=== PATIENT | male | born 1960 | race Caucasian/White ===

== ENCOUNTER 2018-12-26 14:25 | Emergency (ER) | payer MEDICARE ==
[~2018-12-26] VITALS: Ht 170.2 cm; Wt 81.2 kg
[2018-12-26] MEDS ORDERED: MUPI22OI30 TOP (15:11)
[2018-12-26] MEDS ORDERED: SULF1TAB49 PO (15:11)
[2018-12-26 15:35] VITALS: BP 151/96
== END 2018-12-26 15:36 | disposition home or self-care (01) ==
LOC: ER 14:26
DX: L98.8 Other specified disorders of the skin and subcutaneous tissue (principal); G89.29 Other chronic pain; F12.90 Cannabis use, unspecified, uncomplicated; F15.90 Other stimulant use, unspecified, uncomplicated; Z88.0 Allergy status to penicillin
CPT/HCPCS: 99283

== ENCOUNTER 2019-02-28 15:49 | Emergency (ER) | payer MEDICARE ==
[~2019-02-28] VITALS: Ht 167.6 cm; Wt 83.8 kg
[2019-02-28 16:07] VITALS: BP 169/111
[2019-02-28] MEDS ORDERED: MUPI22OI30 TOP (17:22)
[2019-02-28] MEDS ORDERED: SULF1TAB49 PO (17:22)
== END 2019-02-28 17:38 | disposition home or self-care (01) ==
LOC: ER 15:50
DX: R21 Rash and other nonspecific skin eruption (principal); G89.29 Other chronic pain; F12.90 Cannabis use, unspecified, uncomplicated; F15.90 Other stimulant use, unspecified, uncomplicated; Z79.2 Long term (current) use of antibiotics; Z88.0 Allergy status to penicillin
CPT/HCPCS: 99283

== ENCOUNTER 2021-06-29 09:53 | Emergency (ER) | payer MEDICARE ==
[~2021-06-29] VITALS: Ht 170.2 cm; Wt 79.5 kg
[2021-06-29 09:57] VITALS: BP 216/122
[2021-06-29 10:32] LABS: BASOPHILS # (AUTO) 0.1 X10'3 (0-0.2); BASOPHILS % (AUTO) 0.9 % (0-1); EOSINOPHILS # (AUTO) 0.1 X10'3 (0-0.9); EOSINOPHILS % (AUTO) 0.8 % (0-6); HEMATOCRIT 42.5 % (42.0-52.0); HEMOGLOBIN 14.6 g/dl (14.0-17.9); LYMPHOCYTES # (AUTO) 1.4 X10'3 (1.1-4.8); LYMPHOCYTES % (AUTO) 21.5 % (21-51); MEAN CORPUSCULAR HEMOGLOBIN 31.7 PG (27.0-31.0); MEAN CORPUSCULAR HGB CONC 34.3 g/dL (33.0-36.5); MEAN CORPUSCULAR VOLUME 92.4 FL (78-98); MEAN PLATELET VOLUME 7.5 FL (7.4-10.4); MONOCYTES # (AUTO) 0.4 X10'3 (0-0.9); MONOCYTES % (AUTO) 6.4 % (2-12); NEUTROPHILS # (AUTO) 4.5 X10'3 (1.8-7.7); NEUTROPHILS % (AUTO) 70.4 % (42-75); PLATELET COUNT 252 X10'3 (140-440); RED CELL DISTRIBUTION WIDTH 14.6 % (11.5-14.5); WHITE BLOOD COUNT 6.4 X10'3 (4.5-11.0)
[2021-06-29 10:41] LABS: ALANINE AMINOTRANSFERASE 27 U/L (12-78); ALBUMIN 3.6 G/DL (3.4-5.0); ALBUMIN/GLOBULIN RATIO 0.9 (1.1-1.5); ALKALINE PHOSPHATASE 69 IU/L (46-116); ANION GAP 7 (8-16); ASPARTATE AMINO TRANSFERASE 20 U/L (10-37); BILIRUBIN,TOTAL 0.4 MG/DL (0.1-1.0); BLOOD UREA NITROGEN 21 MG/DL (7-18); BUN/CREATININE RATIO 28.4 (5.4-32.0); CALCIUM 8.7 MG/DL (8.5-10.1); CHLORIDE 104 MMOL/L (99-107); CREATININE 0.74 MG/DL (0.60-1.10); GLUCOSE 96 MG/DL (70-104); POTASSIUM 4.5 MMOL/L (3.5-5.1); SODIUM 141 MMOL/L (135-145); TOTAL CARBON DIOXIDE 29.7 MMOL/L (24-32); TOTAL PROTEIN 7.6 G/DL (6.4-8.2); eGFR > 90 ML/MIN
[2021-06-29] MEDS ORDERED: tranexamic acid 100mg/ml inj. TP ONE (12:30)
[2021-06-29] MEDS ORDERED: oxymetazoline 15 ML nasal spray NS ONE (12:30)
[2021-06-29] MEDS ORDERED: LIDOcaine Viscous 15ml cup MM ONE (14:00)
[2021-06-29] MEDS ORDERED: SULF1TAB49 PO (14:22)
== END 2021-06-29 14:39 | disposition home or self-care (01) ==
LOC: ER 09:53
DX: R04.0 Epistaxis (principal); G89.29 Other chronic pain; F12.90 Cannabis use, unspecified, uncomplicated; F15.90 Other stimulant use, unspecified, uncomplicated; Z88.0 Allergy status to penicillin; Z79.2 Long term (current) use of antibiotics
CPT/HCPCS: 30901; 30906; 36415; 80053; 85025; 85610; 86885; 86900; 86901; 99283; 99284

== ENCOUNTER 2023-08-30 06:19 | Emergency (ER) | payer MEDICARE ==
[~2023-08-30] VITALS: Ht 170.2 cm; Wt 82.7 kg
[2023-08-30 06:25] VITALS: TEMP 98.6
[2023-08-30 08:45] VITALS: BP 171/107; PULSE 79; RESP 16; O2SAT 99
[2023-08-30 09:47] LABS: BASOPHILS # (AUTO) 0.1 X10'3 (0-0.2); BASOPHILS % (AUTO) 0.9 % (0-1); EOSINOPHILS # (AUTO) 0.1 X10'3 (0-0.9); HEMATOCRIT 44.3 % (42.0-52.0); HEMOGLOBIN 14.6 g/dl (14.0-17.9); LYMPHOCYTES # (AUTO) 1.1 X10'3 (1.1-4.8); MEAN CORPUSCULAR HEMOGLOBIN 30.6 PG (27.0-31.0); MEAN CORPUSCULAR HGB CONC 33.1 g/dL (33.0-36.5); MEAN CORPUSCULAR VOLUME 92.6 FL (78-98); MEAN PLATELET VOLUME 7.5 FL (7.4-10.4); MONOCYTES # (AUTO) 0.7 X10'3 (0-0.9); MONOCYTES % (AUTO) 10.4 % (2-12); NEUTROPHILS # (AUTO) 5.1 X10'3 (1.8-7.7); NEUTROPHILS % (AUTO) 71.7 % (42-75); PLATELET COUNT 224 X10'3 (140-440); RED BLOOD COUNT 4.78 X10'6 (4.70-6.10); RED CELL DISTRIBUTION WIDTH 14.8 % (11.5-14.5); WHITE BLOOD COUNT 7.1 X10'3 (4.5-11.0)
[2023-08-30 10:01] LABS: ALBUMIN 3.5 G/DL (3.4-5.0); ANION GAP 7 (8-16); BLOOD UREA NITROGEN 14 MG/DL (7-18); BUN/CREATININE RATIO 16.5 (10.0-20.0); CALCIUM 8.8 MG/DL (8.5-10.1); CHLORIDE 103 MMOL/L (99-107); CREATININE 0.85 MG/DL (0.60-1.10); GLUCOSE 106 MG/DL (70-104); POTASSIUM 4.2 MMOL/L (3.5-5.1); SODIUM 137 MMOL/L (135-145); TOTAL CARBON DIOXIDE 27.4 MMOL/L (24-32); eCRCL 85 ML/MIN; eGFR > 90 ML/MIN
== END 2023-08-30 18:23 | disposition left against medical advice (07) ==
LOC: ER 06:20
DX: L08.89 Other specified local infections of the skin and subcutaneous tissue (principal); G89.29 Other chronic pain; F12.90 Cannabis use, unspecified, uncomplicated; F15.90 Other stimulant use, unspecified, uncomplicated
CPT/HCPCS: 36415; 80048; 85025; 85651; 86140; 99281; 99283

== ENCOUNTER 2023-08-30 18:06 | Emergency (ER) | payer MEDICARE ==
[~2023-08-30] VITALS: Ht 170.2 cm; Wt 83.0 kg
[2023-08-30 18:48] VITALS: BP 141/91; PULSE 83; RESP 16; TEMP 97.8; O2SAT 99
== END 2023-08-30 21:12 | disposition left against medical advice (07) ==
LOC: ER 18:07
DX: R22.43 Localized swelling, mass and lump, lower limb, bilateral (principal); G89.29 Other chronic pain; F12.90 Cannabis use, unspecified, uncomplicated; F15.90 Other stimulant use, unspecified, uncomplicated; Z72.89 Other problems related to lifestyle; Z88.0 Allergy status to penicillin
CPT/HCPCS: 36415; 83880; 99283

== ENCOUNTER 2024-11-09 07:23 | Emergency (ER) | payer MEDICARE ==
[~2024-11-09] VITALS: Ht 170.2 cm; Wt 80.8 kg
[2024-11-09] MEDS ORDERED: NO HOME MEDS (07:39)
[2024-11-09 08:14] LABS: BASOPHILS # (AUTO) 0.1 X10'3 (0-0.2); BASOPHILS % (AUTO) 1.2 % (0-1); EOSINOPHILS # (AUTO) 0.1 X10'3 (0-0.9); EOSINOPHILS % (AUTO) 1.4 % (0-6); HEMATOCRIT 49.9 % (42.0-52.0); HEMOGLOBIN 16.7 g/dl (14.0-17.9); LYMPHOCYTES # (AUTO) 1.3 X10'3 (1.1-4.8); LYMPHOCYTES % (AUTO) 17.1 % (21-51); MEAN CORPUSCULAR HEMOGLOBIN 31.3 PG (27.0-31.0); MEAN CORPUSCULAR HGB CONC 33.5 g/dL (33.0-36.5); MEAN CORPUSCULAR VOLUME 93.4 FL (78-98); MEAN PLATELET VOLUME 7.8 FL (7.4-10.4); MONOCYTES # (AUTO) 0.6 X10'3 (0-0.9); MONOCYTES % (AUTO) 8.1 % (2-12); NEUTROPHILS # (AUTO) 5.6 X10'3 (1.8-7.7); NEUTROPHILS % (AUTO) 72.2 % (42-75); PLATELET COUNT 277 X10'3 (140-440); RED BLOOD COUNT 5.35 X10'6 (4.70-6.10); RED CELL DISTRIBUTION WIDTH 14.1 % (11.5-14.5); WHITE BLOOD COUNT 7.7 X10'3 (4.5-11.0)
[2024-11-09 08:28] LABS: ALANINE AMINOTRANSFERASE 24 U/L (12-78); ALBUMIN 3.8 G/DL (3.4-5.0); ALBUMIN/GLOBULIN RATIO 0.8 (1.1-1.5); ALKALINE PHOSPHATASE 104 IU/L (46-116); ANION GAP 6 (8-16); ASPARTATE AMINO TRANSFERASE 24 U/L (10-37); BILIRUBIN,TOTAL 0.3 MG/DL (0.1-1.0); BLOOD UREA NITROGEN 13 MG/DL (7-18); BUN/CREATININE RATIO 16.7 (10.0-20.0); CALCIUM 8.8 MG/DL (8.5-10.1); CHLORIDE 101 MMOL/L (99-107); CREATININE 0.78 MG/DL (0.60-1.10); GLUCOSE 111 MG/DL (70-104); POTASSIUM 3.8 MMOL/L (3.5-5.1); SODIUM 136 MMOL/L (135-145); TOTAL CARBON DIOXIDE 28.8 MMOL/L (24-32); TOTAL PROTEIN 8.3 G/DL (6.4-8.2); eCRCL 92 ML/MIN; eGFR > 90 ML/MIN
[2024-11-09 08:36] LABS: PRO BRAIN NATRIURETIC PEPTIDE 210 PG/ML (0-125)
[2024-11-09] MEDS ORDERED: iohexol 350MG/ML 100ml bottle IV ONE (09:03)
[2024-11-09] MEDS ORDERED: iohexol 350 MG/ML 50ML vial IV ONE (09:03)
[2024-11-09] MEDS: ringers solution, lacted 1,000 ML IV ONE (09:04)
[2024-11-09] MEDS: aspirin 325mg tablet PO ONE (10:36)
[2024-11-09] MEDS: labetalol 20mg/4ml (5mg/ml) syringe IV ONE (10:36)
[2024-11-09] MEDS: HYDROchlorothiazide 25mg tablet PO SCH (12:45)
[2024-11-09] MEDS ORDERED: HYDROcodone/acetaminophen 10/325mg tab PO PRN (12:55)
[2024-11-09] MEDS ORDERED: ondansetron/PF 4mg/2ml inj IV PRN (12:55)
[2024-11-09] MEDS ORDERED: magnesium sulf-water 2g/50mL 50 ML IV PRN (12:55)
[2024-11-09] MEDS ORDERED: potassium Cl 20 mEq SR tablet PO PRN ×2 (12:55)
[2024-11-09] MEDS ORDERED: morphine 2 MG/ML inj. syringe IV PRN ×2 (12:55)
[2024-11-09] MEDS ORDERED: normal saline 1000ml 1,000 ML IV SCH (12:55)
[2024-11-09] MEDS ORDERED: HYDROcodone/acetaminophen 5mg/325mg tablet PO PRN (12:55)
[2024-11-09] MEDS ORDERED: potassium Cl 40MEQ/1/2NS 520ml 520 ML IV PRN (12:55)
[2024-11-09] MEDS ORDERED: acetaminophen 325mg tablet PO PRN ×2 (12:55)
[2024-11-09] MEDS ORDERED: magnesium Cl slow-release 64mg tablet PO PRN (12:55)
[2024-11-09] MEDS ORDERED: magnesium sulf-water 4G/100mL 100 ML IV PRN (12:55)
[2024-11-09 13:04] VITALS: BP 200/114; PULSE 63; RESP 16; TEMP 97.5; O2SAT 99
[2024-11-09] MEDS ORDERED: heparin, porcine 5000 units/ml vial SQ SCH (16:00)
[2024-11-09] MEDS ORDERED: amLODIPine 5mg tablet PO SCH (20:00)
[2024-11-10] MEDS ORDERED: ATOR40TA PO (07:26)
[2024-11-10] MEDS ORDERED: ASPI-1265 PO (07:26)
[2024-11-10] MEDS ORDERED: LISI1TAB49 PO (07:28)
[2024-11-10] MEDS ORDERED: lisinopril 10 MG tablet PO SCH (08:00)
== END 2024-11-09 13:08 | disposition left against medical advice (07) ==
LOC: ER 07:23
DX: I70.221 Atherosclerosis of native arteries of extremities with rest pain, right leg (principal); I16.1 Hypertensive emergency; Z87.891 Personal history of nicotine dependence; F12.90 Cannabis use, unspecified, uncomplicated; F15.90 Other stimulant use, unspecified, uncomplicated; Z88.0 Allergy status to penicillin; Z88.8 Allergy status to other drugs, medicaments and biological substances; Z79.82 Long term (current) use of aspirin
CPT/HCPCS: 36415; 71045; 75635; 80053; 83880; 84484; 85025; 93005; 96361; 96374; 99285; J3490; J7120; Q9967; 96365; 96375